=== PATIENT | male | born 1970 | race Caucasian/White ===

== ENCOUNTER → 2020-11-23 | Outpatient (REF) ==
[2020-11-23 22:40] LABS: BASO % 0.1 % (0.0-2.0); EOS % 0.1 % (0-4.0); GRAN # 6.4 (1.4-6.5); HEMOGLOBIN 10.6 g/dl (13.5-18.0); LYMPH # 0.6 (1.2-3.4); LYMPH % 7.9 % (20.0-51.0); MEAN CELL VOLUME 86 fl (80.0-100.0); MEAN CORPUSCULAR HEMOGLOBIN 29 pg (27.0-31.0); MEAN CORPUSCULAR HGB CONC 34 g/dl (33.0-37.0); MEAN PLATELET VOLUME 9.9 fl (7.4-10.4); MONO # 0.2 (0.1-0.6); MONO % 2.5 % (1.7-9.3); PLATELET COUNT 350 K/mm3 (130-400); RED BLOOD COUNT 3.66 M/mm3 (4.20-5.60); REDCELL DISTRIBUTION WIDTH-CV 13.6 % (11.5-14.5)
[2020-11-23 22:50] LABS: ALBUMIN 2.7 gm/dL (3.5-5.0); BILIRUBIN,TOTAL 0.7 mg/dL (0.0-1.0); CALCIUM 8.2 mg/dL (8.4-10.2); CREATININE, serum 1.11 (0.66-1.25)
[2020-11-23 22:51] LABS: HEMATOCRIT 31.4 % (42.0-52.0)
== END ==
LOC: ZCOL.LAB 22:35
DX: Z51.81 Encounter for therapeutic drug level monitoring (principal)

== ENCOUNTER 2021-01-01 13:29 | Outpatient (RCR) | payer BC ==
[~2021-01-01] VITALS: Ht 182.9 cm; Wt 114.4 kg
[~2021-01-01 13:29] MED LIST: ATIVAN 0.50.5 MG/TAB PO; BETAPACE 80MG80 MG PO; BETAPACE80 MG PO; CALCIUM PO; CENTRUM SILVER CHEW PO; K-DUR20 MEQ PO; K-TAB20 PO; MAG-OX 400400 MG/TAB PO; MEDROL 4MG DOSPA4 MG PO; NATURE'S BLEND100 M2; NATURE'S BLEND100 M2 PO; NEURONTIN100 MG/CAP PO; NORCO 325 MG-51 TAB PO; PRINZIDE 12.5 M1 TA1 PO; PROTONIX 40MG T40 MG PO; ROBAXIN 50500 MG/TAB PO; ROXICODONE 55 MG/TAB PO; ULTRAM 50MG TAB50 MG PO; [UNRECOGNIZED DRUG - OTHER] PO; [UNRECOGNIZED DRUG - REMARK]
[2021-01-01] MEDS ORDERED: K-DUR20 MEQ PO (14:39)
[2021-01-01] MEDS ORDERED: CALCIUM 600MG+D1 TAB PO (14:40)
[2021-01-01] MEDS ORDERED: NATURE'S BLEND100 M2 PO (14:40)
[2021-01-01] MEDS ORDERED: VITAMIN B-6100 MG PO (14:42)
[2021-01-01] MEDS ORDERED: MIRALAX PA17 GM/Dose PO (14:42)
[2021-01-01] MEDS ORDERED: VITAMIN B12 781 TAB PO (14:43)
[2021-01-01] MEDS ORDERED: NATURAL IRON65 MG PO (14:43)
[2021-01-01] MEDS ORDERED: ULTRAM 50MG TAB50 MG PO (14:44)
[2021-01-01] MEDS ORDERED: ROBAXIN 75750 MG/TAB PO (14:44)
[2021-01-01] MEDS ORDERED: TYLENOL 325MG325 MG PO (14:44)
[2021-01-01] MEDS ORDERED: MAG DELAY64 M1 PO (14:46)
[2021-01-01] MEDS ORDERED: NEURONTIN100 MG/CAP PO (14:46)
[2021-01-01] MEDS ORDERED: COLACE 100100 MG/CAP PO (14:47)
[2021-01-01] MEDS ORDERED: FLEXERIL5 MG PO (14:47)
[2021-01-01] MEDS ORDERED: LOVENOX 6060 MG/0.6 SQ (14:48)
[2021-01-01] MEDS ORDERED: ROXICODONE 55 MG/TAB PO (14:48)
[2021-01-01 14:51] VITALS: BP 121/98; PULSE 100; TEMP 98.8
--- NOTE | 2021-01-01 15:30 | NUR ---
Pt assisted up to wheelchair by austin lift. He and are assisted out to their vehicle.
[2021-05-03] MEDS ORDERED: ASPIRIN E.C. 8181 MG PO (11:50)
== END 2021-01-01 17:16 | disposition home or self-care (01) ==
LOC: EUO 13:29
DX: Z95.828 Presence of other vascular implants and grafts (principal)
CPT/HCPCS: C1751

== ENCOUNTER 2021-02-26 20:50 | Inpatient (IN) | payer BC ==
[~2021-02-26] VITALS: Ht 182.9 cm; Wt 109.1 kg
[~2021-02-26 20:50] MED LIST changes: +CALCIUM 600MG+D1 TAB PO; +COLACE 100100 MG/CAP PO; +FLEXERIL5 MG PO; +LOVENOX 6060 MG/0.6 SQ; +MAG DELAY64 M1 PO; +MIRALAX PA17 GM/Dose PO; +NATURAL IRON65 MG PO; +ROBAXIN 75750 MG/TAB PO; +TYLENOL 325MG325 MG PO; +VITAMIN B-6100 MG PO; +VITAMIN B12 781 TAB PO
[2021-02-26 21:18] LABS: MEAN CELL VOLUME 88 fl (80.0-100.0); MEAN CORPUSCULAR HGB CONC 33 g/dl (33.0-37.0); MEAN PLATELET VOLUME 12.1 fl (7.4-10.4); RED BLOOD COUNT 2.28 M/mm3 (4.20-5.60); REDCELL DISTRIBUTION WIDTH-CV 14.2 % (11.5-14.5)
[2021-02-26 21:22] LABS: HEMATOCRIT 20.1 % (42.0-52.0); MEAN CORPUSCULAR HEMOGLOBIN 29 pg (27.0-31.0)
[2021-02-26 21:23] LABS: HEMOGLOBIN 6.7 g/dl (13.5-18.0); PLATELET COUNT 29 K/mm3 (130-400)
[2021-02-26 21:32] LABS: ALBUMIN 2.3 gm/dL (3.5-5.0); BILIRUBIN,TOTAL 0.4 mg/dL (0.0-1.0); C-REACTIVE PROTEIN 6.8 mg/dL (0.0-0.9); CREATININE, serum 0.59 (0.66-1.25); TOTAL PROTEIN 5.9 gm/dL (6.4-8.2)
[2021-02-26 21:34] LABS: CALCIUM 4.6 mg/dL (8.4-10.2); POTASSIUM 2.8 mmol/L (3.4-5.0)
[2021-02-26 22:11] LABS: INR 1.3 (0.8-3.0); PROTHROMBIN TIME 14.1 SECONDS (9.7-12.8)
[2021-02-26 22:13] LABS: PARTIAL THROMBOPLASTIN TIME 31.3 SECONDS (26.0-37.0)
[2021-02-26 22:19] LABS: BAND 2 % (0-10); LYMPHOCYTE 17 % (20.0-51.0); NEUTROPHILS 74 % (42.0-75.2)
[2021-02-26 22:20] LABS: PLATELET ESTIMATE DECREASED (NORMAL)
[2021-02-27] VITALS (7 sets, daily range): BP systolic 79–106; BP diastolic 55–73; PULSE 91–100; TEMP 97.4–98.1
[2021-02-27] MEDS ORDERED: ATIVAN 0.50.5 MG/TAB PO (00:15)
--- NOTE | 2021-02-27 01:09 | NUR ---
PT TRANSPORTED FROM ED TO MEDICAL FLOOR AT 0030 TO ROOM 317,PT A/O X4, VSS, O2 ROOM AIR, POTASSIUM 40 MEQ INFUSING IV AND MAGNESIUM IV INFUSING VIA ABENA PICC. PT REPORTS PAIN TO LOWER BACK AND GENERALIZED ACHING. PTS WILL BRING HOME MED LIST WITHIN THE NEXT COUPLE HOURS.PT REQUESTS A SLIDING BOARD TO USE BEDSIDE COMMODE. NURSE WILL ACCOMODATE. PT EXPRESSES NO ADDITIONAL NEEDS AT THIS TIME. CALL LIGHT WITHIN REACH.
[2021-02-27 01:20] LABS: COLLECTION METHOD CLEAN CATCH
[2021-02-27 01:33] LABS: PH 6 (5-8); SQUAMOUS EPITHELIAL None Seen /hpf; URINE APPEARANCE Clear; URINE BACTERIA None Seen /hpf; URINE BILIRUBIN Negative (NEGATIVE); URINE BLOOD 3+ (NEGATIVE); URINE COLOR Yellow; URINE GLUCOSE Negative (NEGATIVE); URINE KETONE Negative (NEGATIVE); URINE LEUKOCYTE ESTERASE Negative (NEGATIVE); URINE NITRATE Negative (NEGATIVE); URINE PROTEIN(semi-quant) 1+ (NEGATIVE); URINE RBC 20-50 /hpf; URINE UROBILINOGEN Negative (NEGATIVE)
[2021-02-27] MEDS ORDERED: PREDNISONE20 MG PO (04:35)
[2021-02-27] MEDS ORDERED: FLOMAX 0.40.4 MG/CAP PO (04:36)
--- NOTE | 2021-02-27 05:03 | NUR ---
PT WAS ABLE TO PASS A BM, PT REQUIRED 3 STAFF MEMBERS TO HELP AMBULATE TO COMMODE. LIFT MACHINE REQUIRED FOR AMBULATION. PT REPORTS PAIN TO LOWER BACK AND LOWER JOINTS 8 OUT OF 10 SCORE. PT MEDICATED AND REPOSITIONED. PT WAS ABLE TO PROVIDE MEDICATION LIST HE RECEIVED VIA PHONE FROM . NURSE INPUT MEDICATION RECONCILATION. PT. EXPRESSES NO ADDITIONAL NEEDS AT THIS TIME. CALL LIGHT WITHIN REACH.
[2021-02-27] MEDS ORDERED: LOMOTIL 0.025 M1 TAB PO (06:50)
[2021-02-27] MEDS ORDERED: FENTANYL 75MCG TD (07:06)
[2021-02-27 07:12] LABS: MEAN CELL VOLUME 89 fl (80.0-100.0); MEAN CORPUSCULAR HGB CONC 33 g/dl (33.0-37.0); MEAN PLATELET VOLUME 11.6 fl (7.4-10.4); RED BLOOD COUNT 2.24 M/mm3 (4.20-5.60); REDCELL DISTRIBUTION WIDTH-CV 14.6 % (11.5-14.5)
[2021-02-27] MEDS ORDERED: ROXANOL 20MG20 MG/ML PO (07:15)
[2021-02-27 07:16] LABS: ALBUMIN 2.3 gm/dL (3.5-5.0); BILIRUBIN,TOTAL 0.3 mg/dL (0.0-1.0); CREATININE, serum 0.65 (0.66-1.25); MAGNESIUM 1.4 mg/dL (1.6-2.3); TOTAL PROTEIN 5.7 gm/dL (6.4-8.2)
[2021-02-27] MEDS ORDERED: ZOFRAN8 MG PO (07:16)
[2021-02-27] MEDS ORDERED: DECADRON 4MG TAB4 MG PO (07:17)
[2021-02-27 07:21] LABS: HEMOGLOBIN 6.6 g/dl (13.5-18.0); MEAN CORPUSCULAR HEMOGLOBIN 29 pg (27.0-31.0); PLATELET COUNT 26 K/mm3 (130-400)
[2021-02-27 07:26] LABS: POTASSIUM 2.8 mmol/L (3.4-5.0)
[2021-02-27 07:56] LABS: IRON,SERUM 108 ug/dL (35-150)
--- NOTE | 2021-02-27 08:00 | NUR ---
Pt is in bed at this time. C/O pain in the lower extremeties. A&Ox4, no other complaints. Pt needs blood transfusion, blood is ready, per report, we were waiting on morning labs before starting the transfusion. No other concerns at this time.
[2021-02-27 08:05] LABS: TOTAL IRON BINDING CAPACITY 174 ug/dL (261-462)
[2021-02-27 08:48] LABS: BAND 12 % (0-10); LYMPHOCYTE 10 % (20.0-51.0); NEUTROPHILS 76 % (42.0-75.2)
[2021-02-27 08:49] LABS: PLATELET ESTIMATE DECREASED (NORMAL)
[2021-02-27 08:50] LABS: HYPOCHROMIA 1+; NUCLEATED RED BLOOD CELL 0 (0-6)
--- NOTE | 2021-02-27 10:02 | NUR ---
Senior Ssis Developer attended clinical rounds with the team. The patient currently receives cancer treatment and follow Dr. Case. Dr. Cuadra involved in care as well. Per nurse the patient receives home health services from [facility]. After rounds, RICKEY met with the patient to complete intake. The patient lives in [place] with his , Moe. The patient has a wheelchair, commode, walker, hospital bed, austin lift, and will be purchasing a shower chair soon. The patient receives assistance with ADLs from Moe. The patient confirms he does have [facility]. The patient does not have advanced directives but states he does have the forms and is working on completing them. The patient plans on returning home with [facility]. Senior Ssis Developer contacted Marcella with [facility]. She confirms they do have the patient for hh services and will accept him back at discharge. *Discharge disposition: Home with spouse and [facility]
--- NOTE | 2021-02-27 14:13 | NUR ---
Assistant Store Manager Trainee faxed clinical updates to Marcella with [facility].
[2021-02-27 17:21] LABS: FOLATE (FOLIC ACID) 8.8 ng/mL (2.0-20.0)
[2021-02-27 19:46] LABS: HEMATOCRIT 24.6 % (42.0-52.0); HEMOGLOBIN 8.3 g/dl (13.5-18.0)
--- NOTE | 2021-02-27 20:00 | NUR ---
Assessment complete. Patient transferes using austin lift and has just had a medium, loose bowel movement in BSC. Patient is alert and oriented with no complaints of pain at this time. currently at bedside. Bilateral lower extremity and feet edema is present with 1-2 + pitting. Breakdown is noted on his bottom; small parts of the skin appear excoriated and most of it is reddened; barrier cream applied after hygeine care. Comfort measures provided. Call light in reach and bed alarm set.
[2021-02-28 04:14] VITALS: BP 108/70; PULSE 95; TEMP 97.8
[2021-02-28 06:56] LABS: BASO % 0.2 % (0.0-2.0); EOS % 0.1 % (0-4.0); GRAN # 9.2 (1.4-6.5); GRAN % 76.1 % (42.2-75.2); LYMPH # 2.1 (1.2-3.4); LYMPH % 17.4 % (20.0-51.0); MEAN CELL VOLUME 89 fl (80.0-100.0); MEAN CORPUSCULAR HGB CONC 34 g/dl (33.0-37.0); MEAN PLATELET VOLUME 12.1 fl (7.4-10.4); MONO # 0.7 (0.1-0.6); MONO % 5.5 % (1.7-9.3); RED BLOOD COUNT 2.34 M/mm3 (4.20-5.60); REDCELL DISTRIBUTION WIDTH-CV 15.1 % (11.5-14.5)
[2021-02-28 07:03] LABS: ALBUMIN 2.2 gm/dL (3.5-5.0); BILIRUBIN,TOTAL 0.3 mg/dL (0.0-1.0); CREATININE, serum 0.66 (0.66-1.25); PHOSPHOROUS 1.9 mg/dL (2.5-4.5); POTASSIUM 3.7 mmol/L (3.4-5.0); TOTAL PROTEIN 5.4 gm/dL (6.4-8.2)
[2021-02-28 07:10] LABS: CALCIUM 5.5 mg/dL (8.4-10.2)
[2021-02-28 07:11] LABS: MAGNESIUM 0.9 mg/dL (1.6-2.3)
--- NOTE | 2021-02-28 07:21 | NUR ---
Patient asleep in bed at this time. No signs of pain, discomfort, or further needs at this time. Will continue to monitor. Call light within reach. Fall precautions in place.
--- NOTE | 2021-02-28 07:25 | NUR ---
Critical lab values recieved from Jessica in lab. Calcium is 5.5, Magnesium 0.9, Hgb 7, and Plt 16. Results given to JATIN Michelle.
[2021-02-28 07:26] LABS: HEMATOCRIT 20.7 % (42.0-52.0); MEAN CORPUSCULAR HEMOGLOBIN 30 pg (27.0-31.0); PLATELET COUNT 16 K/mm3 (130-400)
[2021-02-28 07:57] VITALS: BP 98/60; PULSE 92; TEMP 97.5
--- NOTE | 2021-02-28 09:23 | NUR ---
Associate Counsel attended clinical rounds with the team. The patient plans to return home with [facility] when medically cleared for discharge.
[2021-02-28 11:25] VITALS: BP 100/62; PULSE 93; TEMP 97.6
[2021-02-28 12:02] LABS: HEMATOCRIT 21.2 % (42.0-52.0); HEMOGLOBIN 7.1 g/dl (13.5-18.0)
[2021-02-28 16:21] VITALS: BP 124/86; PULSE 94; TEMP 97.7
--- NOTE | 2021-02-28 18:25 | NUR ---
Patient has a good day. Scheduled meds given. Assessment performed. Patient has experienced some pain today and was given Roxycodone as ordered. Patient states that this has helped. Patient has recieved electrolyte replacement and will have labs rechecked in the AM. Patient is currently on an air mattress and has been repositioned every 2 hours. Patient is not incontinent. Patient denies any further pain, discomfort, or needs at this time. Will continue to monitor.
--- NOTE | 2021-02-28 19:03 | NUR ---
Received report from May. Patient awake in bed. Patient's at bedside. He wanted to go to the bathroom to have bowel movement. Will inform CUSTOMER ADVOCATE for assistance.
[2021-02-28 19:07] VITALS: BP 121/80; PULSE 86; TEMP 97.6
--- NOTE | 2021-02-28 19:25 | NUR ---
Placed patient in a austin lift to bedside commode. Bathroom call light within reach. Changed bedsheets. He wants his air mattress to be removed for now.
--- NOTE | 2021-02-28 20:40 | NUR ---
Returned patient back to bed using austin lift. He complains of pain with pain score of 7/10. Will give Oxycodone. Placed pillows under his feet with ankles floating. Flushed PICC line on right upper arm, both have blood return and flashes well.
[2021-03-01] VITALS (13 sets, daily range): BP systolic 90–163; BP diastolic 49–97; PULSE 83–125; TEMP 97.3–98.5
--- NOTE | 2021-03-01 06:14 | NUR ---
Patient complains of pain on his left leg. Oxycodone given. He refused to be repositioned when offered awhile ago. He only wanted his legs to be moved and adjust his pillow on his feet.
[2021-03-01 06:17] LABS: BASO % 0.2 % (0.0-2.0); GRAN # 9.8 (1.4-6.5); LYMPH # 2.9 (1.2-3.4); MEAN CELL VOLUME 89 fl (80.0-100.0); MEAN CORPUSCULAR HGB CONC 34 g/dl (33.0-37.0); MEAN PLATELET VOLUME 11.9 fl (7.4-10.4); MONO % 7.1 % (1.7-9.3); RED BLOOD COUNT 2.09 M/mm3 (4.20-5.60); REDCELL DISTRIBUTION WIDTH-CV 14.9 % (11.5-14.5)
[2021-03-01 06:18] LABS: HEMATOCRIT 18.5 % (42.0-52.0); MEAN CORPUSCULAR HEMOGLOBIN 30 pg (27.0-31.0)
[2021-03-01 06:20] LABS: HEMOGLOBIN 6.2 g/dl (13.5-18.0); PLATELET COUNT 15 K/mm3 (130-400)
[2021-03-01 06:28] LABS: ALBUMIN 2.1 gm/dL (3.5-5.0); BILIRUBIN,TOTAL 0.2 mg/dL (0.0-1.0); CREATININE, serum 0.73 (0.66-1.25); PHOSPHOROUS 2.1 mg/dL (2.5-4.5); POTASSIUM 3.5 mmol/L (3.4-5.0); TOTAL PROTEIN 5.1 gm/dL (6.4-8.2)
[2021-03-01 06:33] LABS: CALCIUM 5.4 mg/dL (8.4-10.2); MAGNESIUM 0.8 mg/dL (1.6-2.3)
--- NOTE | 2021-03-01 06:56 | NUR ---
Patient lying in bed asleep at this time. No signs of pain, discomfort, or further needs at this time. Will continue to monitor. Call light within reach.
[2021-03-01 12:56] LABS: RETIC # 0.01 M/mm3 (0.02-0.16); RETIC % 0.6 % (0.5-3.52)
--- NOTE | 2021-03-01 13:54 | NUR ---
Muskrat Trapper attended clinical rounds with the team. The patient is not ready for discharge this day.
--- NOTE | 2021-03-01 14:21 | NUR ---
Blood transfusion on patient started. GABBIE Bach verified product. Patient tolerating well. Will continue to monitor.
[2021-03-01 16:50] LABS: HEMATOCRIT 22.3 % (42.0-52.0); HEMOGLOBIN 7.6 g/dl (13.5-18.0)
[2021-03-01 16:59] LABS: MAGNESIUM 1.1 mg/dL (1.6-2.3)
--- NOTE | 2021-03-01 18:08 | NUR ---
Patient has had a good day. Hgb this am was 6.2, Mag 0.8, Ca 5.4, K 3.5. IV Calcium and Magnesium replacement have been given. 1 unit of blood has been transfused. Patient tolerated well. Hgb post transfusion is 7.6, Ca 6.0, and Mag 1.1. Patient has been recieving PRN pain medication as ordered throughout the shift. Patient denies any further pain, discomfort, or needs at this time. Daughter at bedside. Call light within reach. Fall precautions in place.
[2021-03-02] VITALS (12 sets, daily range): BP systolic 96–138; BP diastolic 66–87; PULSE 82–101; TEMP 97.5–98.8
--- NOTE | 2021-03-02 02:44 | NUR ---
PT SITTING UP IN BED,02 ROOM AIR, VSS. PT REPORTS BEING CONSTIPATED,PT STATES HE WILL TRY TO DRINK COFFEE TO HELP PASS BM. REPORTS PAIN FOR GROIN AND LOWER BACK AT 8 OUT OF 10. 5MG MORPHINE ADMINISTERED. FOLLOW UP PAIN RATE AT 5 OUT OF 10. PT WOULD ALSO LIKE TO ADD HIS SISTER A HIPAA BENEFICIARY. WILL REPORT TO NEXT SHIFT. INFORMED PT TO GIVE CODE TO SISTER. PT ALSO EXPRESSES HE WOULD LIKE TO SHOWER AT SOME POINT TONIGHT. NO ADDITIONAL NEEDS EXPRESSED AT THIS TIME. CALL LIGHT WITHIN REACH.
[2021-03-02 08:09] LABS: CALCIUM 6.1 mg/dL (8.4-10.2); CREATININE, serum 0.66 (0.66-1.25)
[2021-03-02 08:32] LABS: BASO % 0.2 % (0.0-2.0); GRAN # 11.1 (1.4-6.5); GRAN % 75.3 % (42.2-75.2); LYMPH # 2.5 (1.2-3.4); LYMPH % 16.7 % (20.0-51.0); MEAN CELL VOLUME 88 fl (80.0-100.0); MEAN CORPUSCULAR HGB CONC 33 g/dl (33.0-37.0); MEAN PLATELET VOLUME 11.4 fl (7.4-10.4); RED BLOOD COUNT 2.33 M/mm3 (4.20-5.60); REDCELL DISTRIBUTION WIDTH-CV 15.1 % (11.5-14.5)
[2021-03-02 08:49] LABS: HEMATOCRIT 20.6 % (42.0-52.0); HEMOGLOBIN 6.8 g/dl (13.5-18.0); MEAN CORPUSCULAR HEMOGLOBIN 29 pg (27.0-31.0); PLATELET COUNT 16 K/mm3 (130-400)
--- NOTE | 2021-03-02 09:29 | NUR ---
Php Software Engineer attended clinical rounds with the team. *Discharge disposition: Home with spouse and [facility]
[2021-03-02 15:47] LABS: HEMATOCRIT 25.3 % (42.0-52.0); HEMOGLOBIN 8.4 g/dl (13.5-18.0)
--- NOTE | 2021-03-02 19:08 | NUR ---
Patient resting in bed at this time. Patient is alert and oriented, answers questions appropriately. Patient up with PT/OT to shower today, coccyx was reddenend but blanchable. Air mattress was placed on patient's bed, but patient refused to allow it to be blown up and requests it's removal, states that he is unable to use the urinal with an air mattress and does not want one. Patient was educated about bed sore risk, patient verbalizes understanding but continues to refuse air mattress. One unit of irradiated PRBCs was administered per order. Patient tolerated transfusion well, no indications of transfusion or post transfusion reaction were reported or noted. Patient currently denies needs, call light within reach.
--- NOTE | 2021-03-02 19:10 | NUR ---
Received report from Julieta. Patient awake in bed. Denies needs at this time.
--- NOTE | 2021-03-02 21:00 | NUR ---
Assesment done. Patient complains of pain on his legs. Oxycodone given. Air mattress refused. PICC line flushed and with blood return. Urinal at the bedside. Call light within reach.
[2021-03-03 04:36] VITALS: BP 105/64; PULSE 88; TEMP 97.8
--- NOTE | 2021-03-03 06:31 | NUR ---
PAtient had uneventful night. He was assisted to the bathroom last night via austin lift. Still with pain on his legs. Oxycodone given.
[2021-03-03 07:16] LABS: BASO % 0.1 % (0.0-2.0); GRAN % 74.6 % (42.2-75.2); LYMPH # 2.4 (1.2-3.4); LYMPH % 16.2 % (20.0-51.0); MEAN CELL VOLUME 89 fl (80.0-100.0); MEAN CORPUSCULAR HGB CONC 33 g/dl (33.0-37.0); MEAN PLATELET VOLUME 11.1 fl (7.4-10.4); MONO # 1.2 (0.1-0.6); MONO % 8.4 % (1.7-9.3); RED BLOOD COUNT 2.52 M/mm3 (4.20-5.60)
[2021-03-03 07:23] LABS: HEMATOCRIT 22.3 % (42.0-52.0); HEMOGLOBIN 7.4 g/dl (13.5-18.0); MEAN CORPUSCULAR HEMOGLOBIN 29 pg (27.0-31.0); PLATELET COUNT 17 K/mm3 (130-400)
[2021-03-03 07:24] LABS: CALCIUM 6.4 mg/dL (8.4-10.2); CREATININE, serum 0.76 (0.66-1.25); MAGNESIUM 1.1 mg/dL (1.6-2.3); POTASSIUM 3.7 mmol/L (3.4-5.0)
[2021-03-03 08:00] VITALS: BP 108/73; PULSE 83; TEMP 98.6
[2021-03-03 12:00] VITALS: BP 107/53; PULSE 102; TEMP 98.3
[2021-03-03 16:31] LABS: HEMOGLOBIN 8.3 g/dl (13.5-18.0)
[2021-03-03 17:43] VITALS: BP 103/63; PULSE 104; TEMP 98.4
--- NOTE | 2021-03-03 19:08 | NUR ---
Received report from Claire. Patient awake in bed, eating dinner. at the bedside.
[2021-03-03 20:06] VITALS: BP 105/59; BP 127/56; PULSE 105; PULSE 82; TEMP 97.6; TEMP 98.8
--- NOTE | 2021-03-03 20:30 | NUR ---
Placed compression stockings on BLE. Informed patient that stocking should be on and off at least every 8 hours. Patient aware on fluid restriction. New air mattress placed by day shift nurse. With external catheter. With ongoing Magnesium Sulfate.
[2021-03-03 23:10] VITALS: BP 112/67; PULSE 97; TEMP 97.5
[2021-03-04 03:06] VITALS: BP 124/75; PULSE 74; TEMP 97.4
--- NOTE | 2021-03-04 06:23 | NUR ---
Compression socks removed. Oxycodone given this morning. Reminded patient on watching out for his fluid restriction.
[2021-03-04 06:31] LABS: BASO % 0.2 % (0.0-2.0); GRAN # 10.3 (1.4-6.5); LYMPH # 0.8 (1.2-3.4); LYMPH % 7.1 % (20.0-51.0); MEAN CELL VOLUME 90 fl (80.0-100.0); MEAN CORPUSCULAR HGB CONC 33 g/dl (33.0-37.0); MEAN PLATELET VOLUME 11.9 fl (7.4-10.4); MONO # 0.4 (0.1-0.6); MONO % 3.3 % (1.7-9.3); REDCELL DISTRIBUTION WIDTH-CV 14.9 % (11.5-14.5)
[2021-03-04 06:36] LABS: HEMATOCRIT 23.3 % (42.0-52.0); HEMOGLOBIN 7.6 g/dl (13.5-18.0); MEAN CORPUSCULAR HEMOGLOBIN 29 pg (27.0-31.0)
[2021-03-04 06:38] LABS: PLATELET COUNT 21 K/mm3 (130-400)
[2021-03-04 06:42] LABS: CALCIUM 7.2 mg/dL (8.4-10.2); CREATININE, serum 0.83 (0.66-1.25); MAGNESIUM 1.3 mg/dL (1.6-2.3); POTASSIUM 4.6 mmol/L (3.4-5.0)
--- NOTE | 2021-03-04 07:11 | NUR ---
Patient awake in bed a this time. New air mattress placed yesterday, patient stated that this has helped relieve pressure on his bottom. Patient denies any pain, discomfort, or futher needs at this time. will be coming to visit later in the day. Will continue to monitor. Call light in reach. Fall precautions in place.
[2021-03-04 07:23] VITALS: BP 129/87; PULSE 85; TEMP 97.4
--- NOTE | 2021-03-04 07:40 | NUR ---
Lab told this RN that patient had a D-dimer of 1400.00. JATIN Anaya notified.
--- NOTE | 2021-03-04 10:21 | NUR ---
Scheduled meds given. Assessments performed. Sacral area is reddened, air mattress has been put on the bed, and barrier cream is being used. Patient being repositioned frequently. Fentanyl patch removed, new patch placed on Left Lower Back. Nicotine patch placed on left shoulder. Patient denies any discomfort or futher needs at this time. Will continue to monitor. Call light in reach. Fall precautions in place.
[2021-03-04 11:31] VITALS: BP 110/55; PULSE 88; TEMP 97.6
--- NOTE | 2021-03-04 12:34 | NUR ---
Patient resting in bed at this time. C/O 04/28 all over his body. Roxycodone given. Will re-evaluated pain level. Condom cath fell off, patient does not want it placed back on until later in the day. Patient denies any further discomfort or needs at this time. Will continue to monitor. Call light in reach, fall precautions in place, and air mattress in use.
[2021-03-04 16:12] VITALS: BP 123/88; PULSE 82; TEMP 98.4
--- NOTE | 2021-03-04 17:54 | NUR ---
Patient has been good today. Pain has been at a manageable level. PRN oxycodone and tramadol given. Air mattress and SCD's being used, along with frequent repositioning. Electrolytes have been replaced orally. External catheter has fallen off, patient request that it be replaced at a later time, he is currenlty using the urinal. Patient denies any further discomfort or needs at this time. Will continue to monitor. Call light in reach. Fall precautions in place.
[2021-03-04 18:55] VITALS: BP 126/76; PULSE 97; TEMP 98.7
--- NOTE | 2021-03-04 19:05 | NUR ---
Received report from May. Patient awake in bed. Denies needs at this time.
--- NOTE | 2021-03-04 20:00 | NUR ---
Patient refused to put back the external catheter. He states he can void using the urinal. Isac hose socks removed. SCD placed on BLE.
[2021-03-04 23:55] VITALS: BP 97/72; PULSE 93; TEMP 97.6
[2021-03-05 04:16] VITALS: BP 120/76; PULSE 77; TEMP 98.6
--- NOTE | 2021-03-05 05:37 | NUR ---
Patient had one episode of soft stools. External catheter still off and he uses urinal. Tramadol given this morning for his pain. He doesn't want to have visitors from anyone or someone calling him for an update. Informed charge nurse and supervisor malt house. Will pass on to day shift nurse.
[2021-03-05 06:42] LABS: BASO % 0.1 % (0.0-2.0); GRAN # 12.8 (1.4-6.5); LYMPH # 0.9 (1.2-3.4); LYMPH % 6.1 % (20.0-51.0); MEAN CELL VOLUME 91 fl (80.0-100.0); MEAN CORPUSCULAR HGB CONC 33 g/dl (33.0-37.0); MEAN PLATELET VOLUME 11.4 fl (7.4-10.4); MONO # 0.6 (0.1-0.6); MONO % 4.4 % (1.7-9.3); RED BLOOD COUNT 2.46 M/mm3 (4.20-5.60); REDCELL DISTRIBUTION WIDTH-CV 14.7 % (11.5-14.5)
[2021-03-05 06:48] LABS: HEMATOCRIT 22.4 % (42.0-52.0); HEMOGLOBIN 7.3 g/dl (13.5-18.0); MEAN CORPUSCULAR HEMOGLOBIN 30 pg (27.0-31.0)
[2021-03-05 06:50] LABS: PLATELET COUNT 36 K/mm3 (130-400)
[2021-03-05 07:00] LABS: ALBUMIN 2.3 gm/dL (3.5-5.0); BILIRUBIN,TOTAL 0.3 mg/dL (0.0-1.0); CREATININE, serum 0.86 (0.66-1.25); POTASSIUM 4.7 mmol/L (3.4-5.0); TOTAL PROTEIN 5.4 gm/dL (6.4-8.2)
--- NOTE | 2021-03-05 07:00 | NUR ---
Report received from GABBIE Farmer. PT in bed sleeping with eyes closed. Will continue to monitor.
[2021-03-05 08:00] VITALS: BP 102/73; PULSE 72; TEMP 97.6
--- NOTE | 2021-03-05 08:59 | NUR ---
Assessment charted. Pt awake and alert, very involved in care. DOES NOT WANT VISITORS OR ANYONE ACCESSING HIS UPDATES, HE WITHDRAWS RIGHTS FROM EVERYONE. Pain at 8/10 to BLE and low back, PRN pain meds provided per request. Air mattress in place. PT eating well. Discussed plan of care. BLE +3 or +4, chronic issue, SCDs in place and hose will be placed shortly. PICC to ABENA flushes and good blood return. Sore backside, will use creams per request. Will continue to monitor.
[2021-03-05] MEDS ORDERED: PHOSPHA 250 NEU1 TAB PO (10:33)
[2021-03-05] MEDS ORDERED: CALCIUM 600MG+D1 TAB PO (10:34)
[2021-03-05] MEDS ORDERED: MAG-OX 400400 MG/TAB PO (10:34)
[2021-03-05] MEDS ORDERED: PEPCID 20MG TAB20 MG PO (10:36)
[2021-03-05] MEDS ORDERED: PREDNISONE20 MG PO (10:53)
[2021-03-05 11:48] VITALS: BP 119/82; PULSE 89; TEMP 97.5
--- NOTE | 2021-03-05 14:24 | NUR ---
Discharge teachign completed at thsi time. Pt left via cart with EMS staff. PICC remains per orders for home care. Pt recieved dsicharge packet, reivewed new meds, chages and follow up appointmetns. Pt verbalized understanding, answered all questions. Pt left wtih all bleongings via EMS. EMS to drive home, criteria met.
--- NOTE | 2021-03-06 12:19 | NUR ---
(late entry 03/05) The patient discharged home, 03/05 with spouse and [facility]. PT.OT.Nursing. The patient's friend usually transports the patient. However, he could not transport him this day. The patient was interested in a non-emergent transport via EMS. RICKEY informed the patient he would likely have to sign an ABN and would be responsible for the cost if insurance declined to pay for the transport. He was in agreeance. RICKEY contacted [facility] and they transported the patient. RICKEY faxed discharge orders and discharge summary to Marcella with [facility] and contacted her regarding discharge. There are no additional needs.
[2021-05-03] MEDS ORDERED: ASPIRIN E.C. 8181 MG PO (11:50)
== END 2021-03-05 14:20 | disposition home health service (06) | DRG 812 ==
LOC: COL.ER 20:50 → MEDICAL 22:27 → COL.ER 22:27 → MEDICAL 22:27
PROVIDERS: Emergency Medicine; Hospitalist; Physician Assistant; Student in an Organized Health Care Education/Training Program; ADMIT Student in an Organized Health Care Education/Training Program
DX: D64.81 Anemia due to antineoplastic chemotherapy (principal); G61.81 Chronic inflammatory demyelinating polyneuritis; E87.1 Hypo-osmolality and hyponatremia; C63.7 Malignant neoplasm of other specified male genital organs; T45.1X5A Adverse effect of antineoplastic and immunosuppressive drugs, initial encounter; I10 Essential (primary) hypertension; I48.91 Unspecified atrial fibrillation; D69.6 Thrombocytopenia, unspecified; E83.51 Hypocalcemia; E87.6 Hypokalemia; E83.42 Hypomagnesemia; D72.829 Elevated white blood cell count, unspecified; E83.39 Other disorders of phosphorus metabolism; K21.9 Gastro-esophageal reflux disease without esophagitis; F41.9 Anxiety disorder, unspecified; G89.29 Other chronic pain
CPT/HCPCS: 99223-AI; 99232-AI; 99233-AI; 99239; J0610; J2930; J3475; J3480; J7030; J7512; P9040

== ENCOUNTER → 2021-04-26 | Outpatient (CLI) | payer BC ==
[~2021-04-26] MED LIST changes: +ASPIRIN E.C. 8181 MG PO; +CENA K40 MEQ/15 PO; +DAZIDOX10 MG PO; +DECADRON 4MG TAB4 MG PO; +FENTANYL 100MCG TD; +FENTANYL 50MCG TD; +FENTANYL 75MCG TD; +FLOMAX 0.40.4 MG/CAP PO; +LOMOTIL 0.025 M1 TAB PO; +NEURONTIN300 MG/CAP PO; +ONE-A-DAY ESSE1 EACH PO; +PEPCID 20MG TAB20 MG PO; +PHOSPHA 250 NEU1 TAB PO; +PREDNISONE20 MG PO; +PROBIOTIC ACID1 EAC3 PO; +QUESTRAN4 GM/9 GM PO; +ROXANOL 20MG20 MG/ML PO; +ZOFRAN8 MG PO
== END ==
LOC: EUO 08:30
DX: Z45.2 Encounter for adjustment and management of vascular access device (principal)

== ENCOUNTER 2021-05-03 12:44 | Outpatient (CLI) | payer BC ==
[~2021-05-03] VITALS: Ht 182.9 cm; Wt 111.6 kg
[2021-05-03 11:10] VITALS: BP 107/70; PULSE 64; TEMP 98.2
--- NOTE | 2021-05-03 12:20 | NUR ---
Pt taken from dept in care of [facility] with belongings. PICC to rt upper arm wrapped with wesly.
[~2021-05-03 12:44] MED LIST changes: -CENA K40 MEQ/15 PO; -DAZIDOX10 MG PO; -FENTANYL 100MCG TD; -FENTANYL 50MCG TD; -NEURONTIN300 MG/CAP PO; -ONE-A-DAY ESSE1 EACH PO; -PROBIOTIC ACID1 EAC3 PO; -QUESTRAN4 GM/9 GM PO
== END 2021-05-03 12:50 | disposition home or self-care (01) ==
LOC: EUO 12:44
DX: C77.2 Secondary and unspecified malignant neoplasm of intra-abdominal lymph nodes (principal); C79.89 Secondary malignant neoplasm of other specified sites
CPT/HCPCS: C1751

== ENCOUNTER 2021-06-29 08:56 | Outpatient (CLI) | payer BC ==
[2021-06-29] VITALS (10 sets, daily range): BP systolic 88–99; BP diastolic 30–70; PULSE 91–114; TEMP 97.7–98.9
[~2021-06-29] VITALS: Ht 182.9 cm; Wt 109.0 kg
--- NOTE | 2021-06-29 18:01 | NUR ---
Pt transferred via EMS at this time.
== END 2021-06-29 18:13 ==
LOC: EUO 08:56
DX: D64.9 Anemia, unspecified (principal)
CPT/HCPCS: J7050; P9040

== ENCOUNTER 2021-07-16 11:31 | Emergency (ER) | payer BC ==
[~2021-07-16] VITALS: Ht 182.9 cm; Wt 113.6 kg
[2021-07-16 11:33] VITALS: TEMP 97.5
[2021-07-16 12:41] LABS: ALBUMIN 1.6 gm/dL (3.5-5.0); BILIRUBIN,TOTAL 0.5 mg/dL (0.2-1.2); CREATININE, serum 2.12 mg/dL (0.72-1.25); POTASSIUM 4.1 mmol/L (3.5-4.5); TOTAL PROTEIN 5.4 gm/dL (6.2-8.1)
[2021-07-16 12:42] LABS: BASO % 0.1 % (0.0-2.0); GRAN % 83.8 % (42.2-75.2); LYMPH # 0.9 (1.2-3.4); LYMPH % 8.8 % (20.0-51.0); MEAN CELL VOLUME 94 fl (80.0-100.0); MEAN CORPUSCULAR HEMOGLOBIN 30 pg (27.0-31.0); MEAN CORPUSCULAR HGB CONC 31 g/dl (33.0-37.0); MEAN PLATELET VOLUME 9.5 fl (7.4-10.4); MONO # 0.7 (0.1-0.6); MONO % 6.3 % (1.7-9.3); PLATELET COUNT 231 K/mm3 (130-400); RED BLOOD COUNT 3.38 M/mm3 (4.20-5.60); REDCELL DISTRIBUTION WIDTH-CV 14.6 % (11.5-14.5)
[2021-07-16 12:49] LABS: HEMATOCRIT 31.9 % (42.0-52.0)
[2021-07-16 14:23] LABS: COLLECTION METHOD CLEAN CATCH
[2021-07-16 14:57] LABS: AMORPHOUS CRYSTAL Present /uL; PH 8 (5-8); SQUAMOUS EPITHELIAL 0-2 /hpf; URINE APPEARANCE Cloudy; URINE BACTERIA None Seen /hpf; URINE BILIRUBIN Negative (NEGATIVE); URINE BLOOD 2+ (NEGATIVE); URINE COLOR Yellow; URINE GLUCOSE Negative (NEGATIVE); URINE KETONE Negative (NEGATIVE); URINE LEUKOCYTE ESTERASE Trace (NEGATIVE); URINE NITRATE Negative (NEGATIVE); URINE PROTEIN(semi-quant) Negative (NEGATIVE); URINE UROBILINOGEN Negative (NEGATIVE)
[2021-07-16 16:00] VITALS: BP 104/81; PULSE 85
== END 2021-07-16 16:00 | disposition home or self-care (01) ==
LOC: COL.ER 11:31
PROVIDERS: Family Medicine
DX: R60.1 Generalized edema (principal); R59.0 Localized enlarged lymph nodes; I48.91 Unspecified atrial fibrillation; Z79.899 Other long term (current) drug therapy
CPT/HCPCS: J7120

== ENCOUNTER 2021-08-08 17:37 | Inpatient (IN) | payer BC ==
[~2021-08-08] VITALS: Ht 177.8 cm; Wt 278.7 kg
[2021-08-08] VITALS (50 sets, daily range): BP systolic 86–95; BP diastolic 65–72; PULSE 114–117; TEMP 97.8–97.9; O2SAT 95–100
[2021-08-08 18:42] LABS: MEAN CELL VOLUME 94 fl (80.0-100.0); MEAN CORPUSCULAR HGB CONC 31 g/dl (33.0-37.0); MEAN PLATELET VOLUME 11.6 fl (7.4-10.4); PLATELET COUNT 69 K/mm3 (130-400); RED BLOOD COUNT 2.62 M/mm3 (4.20-5.60); REDCELL DISTRIBUTION WIDTH-CV 14.3 % (11.5-14.5)
[2021-08-08 18:49] LABS: HEMATOCRIT 24.7 % (42.0-52.0); HEMOGLOBIN 7.6 g/dl (13.5-18.0); MEAN CORPUSCULAR HEMOGLOBIN 29 pg (27.0-31.0)
[2021-08-08 19:00] LABS: ALBUMIN 1.5 gm/dL (3.5-5.0); BILIRUBIN,TOTAL 0.7 mg/dL (0.2-1.2); CALCIUM 8.1 mg/dL (8.4-10.2); CREATININE, serum 2.75 mg/dL (0.72-1.25); POTASSIUM 4.8 mmol/L (3.5-4.5); TOTAL PROTEIN 4.9 gm/dL (6.2-8.1)
[2021-08-08 19:06] LABS: TROPONIN-I 0.031 ng/mL (0.00-0.033)
[2021-08-08 19:13] LABS: COLLECTION METHOD CLEAN CATCH
[2021-08-08 19:27] LABS: ARTERIAL BLD GAS O2 SATURATION 95.9 % (92-100); ARTERIAL BLOOD GAS BASE EXCESS -8.3 (-2-2); ARTERIAL BLOOD GAS HCO3 16.1 meq/L (22-26); ARTERIAL BLOOD GAS PO2 88.7 mmHg (80-100); ARTERIAL BLOOD GAS pH 7.36 (7.35-7.45)
[2021-08-08 19:29] LABS: BAND 4 % (0-10); LYMPHOCYTE 60 % (20.0-51.0); NEUTROPHILS 31 % (42.0-75.2)
[2021-08-08 19:30] LABS: MUCOUS Present /lpf; PH 5 (5-8); SQUAMOUS EPITHELIAL 0-2 /hpf; URINE APPEARANCE Cloudy; URINE BACTERIA Rare /hpf; URINE BILIRUBIN Negative (NEGATIVE); URINE BLOOD 2+ (NEGATIVE); URINE COLOR Amber; URINE GLUCOSE Negative (NEGATIVE); URINE KETONE Trace (NEGATIVE); URINE LEUKOCYTE ESTERASE 1+ (NEGATIVE); URINE NITRATE Negative (NEGATIVE); URINE PROTEIN(semi-quant) 2+ (NEGATIVE); URINE RBC 20-50 /hpf; URINE UROBILINOGEN >=4.0 mg/dL (NEGATIVE)
[2021-08-08 19:30] LABS: PLATELET ESTIMATE DECREASED (NORMAL)
[2021-08-08 19:31] LABS: OVALOCYTES 1+
[2021-08-08 20:20] LABS: CLOSTRIDIUM DIFF A/B NEG; CLOSTRIDIUM DIFF A/B INTERP No C.diff present
[2021-08-08 21:45] LABS: INR 1.4 (0.8-3.0); PROTHROMBIN TIME 15.4 SECONDS (9.7-12.8)
--- NOTE | 2021-08-08 22:01 | NUR ---
Vancomycin Initial Dosing Pharmacy Note Ordering provider: Diane Sky DO Indication/duration: SEPTIC SHOCK FROM UNKNOWN SOURCE / 7 DAYS Trough goal: 15-20 DOSING HX: NONE IDENTIFIED BMI: 34.5 WT: 109.1 KG ADJBW: 87 KG SCR: 2.75 ESTCRCL ~ 40 ML/MIN T 1/2 ~ 19H TMAX: 98.7 WBC: 0.8 LA: 1.8 UA REPORTIN - 2+ PROTEIN, TRACE KETONES, 2+ BLOOD, 1+ LEUK EST, 20-50 rbc, >50 WBC, RARE BACTERIA MICRO IN PROCESS CXR REPORTIN NO ACUTE ABNORMAILITY PT RECEIVED A LOADING DOSE OF 2 GM, WILL START A MAINTENANCE REGIMEN OF 1.25 GM Q24H. WILL FOLLOW RENAL FUNCTION, MICRO, AND TREATEMNT PLAN FOR NEED TO ADJUST THERAPY. THANK YOU FOR THIS DOSING CONSULT!
[2021-08-08] MEDS ORDERED: FENTANYL 100MCG TD (22:12)
[2021-08-08] MEDS ORDERED: FENTANYL 50MCG TD (22:13)
[2021-08-08] MEDS ORDERED: DAZIDOX10 MG PO (23:09)
[2021-08-08] MEDS ORDERED: PROBIOTIC ACID1 EAC3 PO (23:10)
[2021-08-08] MEDS ORDERED: NEURONTIN300 MG/CAP PO (23:11)
[2021-08-08] MEDS ORDERED: MAG-OX 400400 MG/TAB PO (23:12)
[2021-08-08] MEDS ORDERED: ROXANOL 20MG20 MG/ML PO (23:13)
[2021-08-08] MEDS ORDERED: PHOSPHA 250 NEU1 TAB PO (23:15)
[2021-08-08] MEDS ORDERED: CENA K40 MEQ/15 PO (23:16)
[2021-08-08] MEDS ORDERED: VITAMIN B12 781 TAB PO (23:17)
[2021-08-08] MEDS ORDERED: ONE-A-DAY ESSE1 EACH PO (23:17)
[2021-08-08] MEDS ORDERED: NATURE'S BLEND100 M2 PO (23:17)
[2021-08-08] MEDS ORDERED: CALCIUM 600MG+D1 TAB PO (23:17)
[2021-08-08] MEDS ORDERED: QUESTRAN4 GM/9 GM PO (23:19)
[2021-08-09] VITALS (753 sets, daily range): BP systolic 84–125; BP diastolic 53–90; PULSE 83–123; TEMP 97.4–98.6; O2SAT 78–100
[2021-08-09 02:33] LABS: ARTERIAL BLD GAS O2 SATURATION 94.7 % (92-100); ARTERIAL BLD GAS TCO2 CT 18.1; ARTERIAL BLOOD GAS HCO3 17.2 meq/L (22-26); ARTERIAL BLOOD GAS PO2 78.1 mmHg (80-100); ARTERIAL BLOOD GAS pH 7.38 (7.35-7.45)
[2021-08-09 04:56] LABS: MEAN CELL VOLUME 95 fl (80.0-100.0); MEAN CORPUSCULAR HGB CONC 31 g/dl (33.0-37.0); MEAN PLATELET VOLUME 10.8 fl (7.4-10.4); PLATELET COUNT 74 K/mm3 (130-400); RED BLOOD COUNT 3.21 M/mm3 (4.20-5.60); REDCELL DISTRIBUTION WIDTH-CV 14.2 % (11.5-14.5)
[2021-08-09 05:11] LABS: HEMATOCRIT 30.5 % (42.0-52.0); HEMOGLOBIN 9.3 g/dl (13.5-18.0); MEAN CORPUSCULAR HEMOGLOBIN 29 pg (27.0-31.0)
[2021-08-09 05:50] LABS: BAND 4 % (0-10); EOSINOPHIL 2 % (0-4); LYMPHOCYTE 64 % (20.0-51.0); METAMYELOCYTE 4 % (0-0); NEUTROPHILS 4 % (42.0-75.2); PLATELET ESTIMATE DECREASED (NORMAL)
[2021-08-09 05:51] LABS: HYPOCHROMIA 3+; POLYCHROMASIA 1+; SCHISTOCYTES 1+
[2021-08-09 08:41] LABS: PATHOLOGY DIFF REVIEW OK
--- NOTE | 2021-08-09 13:14 | NUR ---
First visit from the windmill technician. No needs right now.
--- NOTE | 2021-08-09 14:44 | NUR ---
Electro Plater met with patient, patient's Seferino (ph#[phone]), and patient's son Octavio to complete initial intake. Patient lives in [place] with his Seferino and sees Dr. Pickard for primary care. Patient obtains medications from [facility] and Seferino advised they do sometimes have trouble affording patient's medications despite Blue Cross coverage. Patient is currently receiving chemotherapy with the last treatment on 08/02/21. [facility] provides PICC cares to patient and Seferino advised they also have utilized private duty services through [facility] for assistance with hygiene. Patient has a austin lift, hospital bed, and wheelchair at home. Patient appears to be uncomfortable and requests SW follow up with RN about pain medication and moving him. SW notified RN and will continue to follow for discharge needs. PT/OT ordered.
[2021-08-10] VITALS (686 sets, daily range): BP systolic 87–108; BP diastolic 56–76; PULSE 70–96; TEMP 96.7–99; O2SAT 64–100
[2021-08-10 05:31] LABS: MEAN CELL VOLUME 91 fl (80.0-100.0); MEAN CORPUSCULAR HGB CONC 32 g/dl (33.0-37.0); MEAN PLATELET VOLUME 11.9 fl (7.4-10.4); REDCELL DISTRIBUTION WIDTH-CV 14.5 % (11.5-14.5)
[2021-08-10 05:38] LABS: HEMATOCRIT 22.8 % (42.0-52.0); HEMOGLOBIN 7.3 g/dl (13.5-18.0); MEAN CORPUSCULAR HEMOGLOBIN 29 pg (27.0-31.0)
[2021-08-10 05:39] LABS: PLATELET COUNT 44 K/mm3 (130-400)
[2021-08-10 05:40] LABS: ALBUMIN 2.3 gm/dL (3.5-5.0); BILIRUBIN,TOTAL 0.6 mg/dL (0.2-1.2); CALCIUM 7.9 mg/dL (8.4-10.2); CREATININE, serum 2.47 mg/dL (0.72-1.25); POTASSIUM 3.8 mmol/L (3.5-4.5); TOTAL PROTEIN 4.7 gm/dL (6.2-8.1)
[2021-08-10 06:40] LABS: BAND 42 % (0-10); LYMPHOCYTE 33 % (20.0-51.0); METAMYELOCYTE 1 % (0-0); NEUTROPHILS 5 % (42.0-75.2); PLATELET ESTIMATE DECREASED (NORMAL)
[2021-08-10 06:41] LABS: HYPOCHROMIA 1+
[2021-08-10 06:42] LABS: BURR CELLS 1+; POIKILOCYTOSIS 1+
--- NOTE | 2021-08-10 09:33 | NUR ---
I was called by Primary nurse to come and talk with and sister about palliative care. I did go in to talk with them but at that point his wanted to talk with their children before going further with conversation. She has spoken with Dipti at [facility] earlier about palliative home health services she reports. I did leave her with my phone number and encouraged her too call when she was ready to talk further.
[2021-08-10 14:33] LABS: PHOSPHOROUS 4.4 mg/dL (2.3-4.7)
[2021-08-10 14:35] LABS: SALICYLATE < 5.0 mg/dL (15.0-30.0)
--- NOTE | 2021-08-10 15:22 | NUR ---
Met anuj Stephen and her sister again to talk more about what they are looking for in care at this time. After much discussion of supportive care vs comfort care, they are looking at trying to help Ifeanyi get more treatment days over the weekend and then will likely take him home on hospice services. I spoke with Dipti at [facility] who reports it would be hard to admit this patient over the weekend and they would prefer to admit either Friday or Friday if possible. i spoke with Dr Mccormack about what the is hoping for and he did feel we could continue care over the weekend but there are no gaurantees about his improvement. His primary nurse Kayla was also advised of this request and feels that a central line will likely have to be placed. The twins should be here soon so we can talk more about this plan to be sure that they are all on the same page. Liliya, child protective services social worker, will send referral paperwork to [facility] this afternoon. The family does understand that hospice means that we will focus on comfort and quality of life. There would be no more IV antibiotics, no more hospitalizations, no further treatments.
--- NOTE | 2021-08-10 16:32 | NUR ---
Family meeting with sister on phone, Seferino, Sister in law, and the twins and discussion of central line placement was had. Kayla Ness also participated in discussion with family and this nurse. Family is comfortable with looking at hospice but would like for him to continue to be treated over the weekend before going home with hospice.
--- NOTE | 2021-08-10 16:38 | NUR ---
Supervisor Packing collaborated with Jina Palliative RN who advised patient's family is considering hospice, but would like him to continue to be treated at the hospital at this time. Patient's family is interested in hospice at home through [facility]. RICKEY contacted Dipti and faxed referral.
--- NOTE | 2021-08-10 18:02 | NUR ---
FAMILY SPOKE WITH PALLATIVE CARE RN JUAN M AND HAS DECIDED TO CONTINUE TREATMENT AT THIS TIME AND PLAN FOR HOME WITH HOSPICE ON FRIDAY. THEY HOWEVER ARE REFUSING A CENTRAL LINE AT THIS TIME. PT HAS BEEN OFF LEVO FOR A FEW HOURS. RISKS DISCUSSED WITH FAMILY. NOTIFIED. WILL CONITNUE TO MONITOR.
--- NOTE | 2021-08-10 20:24 | NUR ---
Patient called for updated. Update provided. No further questions at this time.
--- NOTE | 2021-08-10 20:40 | NUR ---
Verified with patient -levophed infusion ok if needed just no central lines.
[2021-08-11] VITALS (678 sets, daily range): BP systolic 74–127; BP diastolic 48–94; PULSE 51–105; TEMP 96.4–98.5; O2SAT 76–100
--- NOTE | 2021-08-11 01:22 | NUR ---
Patient temp at 0000 96.7 rectally. Applied warm blankets to patient. Upon recheck 96.4 axillary. Spoke with Sarah NUNEZ. Place rohan hugger and rectal temp probe. Also updated Sarah NUNEZ patient was restarted on levophed for pressures 80s/40s with MAP in 50s.
[2021-08-11 05:16] LABS: MEAN CELL VOLUME 87 fl (80.0-100.0); MEAN CORPUSCULAR HGB CONC 33 g/dl (33.0-37.0); MEAN PLATELET VOLUME 12.5 fl (7.4-10.4); PLATELET COUNT 58 K/mm3 (130-400); RED BLOOD COUNT 2.48 M/mm3 (4.20-5.60); REDCELL DISTRIBUTION WIDTH-CV 14.5 % (11.5-14.5)
[2021-08-11 05:17] LABS: HEMATOCRIT 21.6 % (42.0-52.0); HEMOGLOBIN 7.2 g/dl (13.5-18.0); MEAN CORPUSCULAR HEMOGLOBIN 29 pg (27.0-31.0)
[2021-08-11 05:34] LABS: ALBUMIN 2.2 gm/dL (3.5-5.0); BILIRUBIN,TOTAL 0.5 mg/dL (0.2-1.2); CALCIUM 8.4 mg/dL (8.4-10.2); CREATININE, serum 2.33 mg/dL (0.72-1.25); POTASSIUM 3.2 mmol/L (3.5-4.5); TOTAL PROTEIN 4.6 gm/dL (6.2-8.1)
--- NOTE | 2021-08-11 05:56 | NUR ---
Patient urine output ranged from 25ml to 42ml per hour during night. Sarah NUNEZ aware. Patient placed on rohan hugger with rectal temp probe for low core temps. Patient 98.4 this AM. Patient was repositioned Q2H during night. IV site to left AC closely monitored with levophed infusion. Resting in bed this AM. Call light in reach.
[2021-08-11 06:21] LABS: BAND 13 % (0-10); BASOPHIL 1 % (0-2); LYMPHOCYTE 11 % (20.0-51.0); METAMYELOCYTE 2 % (0-0); NEUTROPHILS 64 % (42.0-75.2); PLATELET ESTIMATE DECREASED (NORMAL)
[2021-08-11 06:22] LABS: HYPOCHROMIA 1+
[2021-08-11 06:24] LABS: BURR CELLS 1+
[2021-08-11 06:25] LABS: ANISOCYTOSIS 1+; SCHISTOCYTES 1+
--- NOTE | 2021-08-11 07:00 | NUR ---
PT RESTING IN BED. PT ON LEVOPHED AND LR. PT HAS BEARHUGGER IN PLACE. PT'S VSS. WILL CONTINUE TO MOTNIOR.
--- NOTE | 2021-08-11 07:09 | NUR ---
Report given to Kayla CARTWRIGHT
--- NOTE | 2021-08-11 15:22 | NUR ---
RICKEY attempted to all patient's spouse to obtain information in regards to considering home hospice through [facility], unable to reach. RICKEY contacted by Marcella from [facility] [phone] fax: [phone] stating that she would like to obtain DC documenation when the information is provided if patient is going through another agency. Marcella stated spouse texted her this morning and provided that patient would be going home on Friday with services but unsure of who's specific services. RICKEY not able to confirm information. RICKEY will continue to follow.
[2021-08-11 16:22] LABS: MAGNESIUM 1.2 mg/dL (1.6-2.6); PHOSPHOROUS 3.7 mg/dL (2.3-4.7)
--- NOTE | 2021-08-11 16:33 | NUR ---
NOTIFIED OF MAG LEVEL 1.2. ORDERS TO REPLACE AND RECHECK IN AM.
--- NOTE | 2021-08-11 21:00 | NUR ---
Assessment complete and charted. Patient incontinent of bowel. Cares provided and patient repositioned. Patient orientated x2. Denies pain. Denies needs at this time. Call light in reach.
[2021-08-12] VITALS (637 sets, daily range): BP systolic 83–121; BP diastolic 68–85; PULSE 84–104; TEMP 97–98.2; O2SAT 80–100
--- NOTE | 2021-08-12 06:13 | NUR ---
Patient remained on levophed throughout night. Repositioned Q2H. Resting in bed this AM. Call light in reach.
--- NOTE | 2021-08-12 07:00 | NUR ---
PT RESTING IN BED. PT ON A LITTLE OF LEVO AND LR. VSS. WILL CONTINUE TO MONTIOR.
[2021-08-12 07:19] LABS: CALCIUM 8.8 mg/dL (8.4-10.2); CREATININE, serum 2.23 mg/dL (0.72-1.25); MAGNESIUM 1.7 mg/dL (1.6-2.6); POTASSIUM 3.5 mmol/L (3.5-4.5)
--- NOTE | 2021-08-12 07:21 | NUR ---
Report given to Kayla CARTWRIGHT
[2021-08-12 08:53] LABS: MEAN CELL VOLUME 91 fl (80.0-100.0); MEAN CORPUSCULAR HGB CONC 32 g/dl (33.0-37.0); MEAN PLATELET VOLUME 12.2 fl (7.4-10.4); PLATELET COUNT 62 K/mm3 (130-400); RED BLOOD COUNT 2.67 M/mm3 (4.20-5.60); REDCELL DISTRIBUTION WIDTH-CV 14.8 % (11.5-14.5)
[2021-08-12 08:54] LABS: HEMATOCRIT 24.4 % (42.0-52.0); HEMOGLOBIN 7.8 g/dl (13.5-18.0); MEAN CORPUSCULAR HEMOGLOBIN 29 pg (27.0-31.0)
[2021-08-12 09:48] LABS: BAND 4 % (0-10); LYMPHOCYTE 4 % (20.0-51.0); NEUTROPHILS 88 % (42.0-75.2)
[2021-08-12 09:49] LABS: HYPOCHROMIA 1+; PLATELET ESTIMATE DECREASED (NORMAL); SCHISTOCYTES 1+
--- NOTE | 2021-08-12 11:38 | NUR ---
RICKEY CONTACTED IN REGARDING TO FAMILIES WISH TO GO HOME WITH HOSPICE FRIDAY OR FRIDAY. [facility] WILL CONTACT TODAY TO ARRANGE.
--- NOTE | 2021-08-12 19:30 | NUR ---
Received report from GABBIE Garza. All medications verified and all questions answered. VSS. Patient resting in bed in room. No concerns or complaints noted at this time. Will resume care of patient at this time.
[2021-08-13] VITALS (363 sets, daily range): BP systolic 68–99; BP diastolic 23–74; PULSE 104–168; TEMP 97.4–98.1; O2SAT 80–100
--- NOTE | 2021-08-13 08:15 | NUR ---
Patient awake and naping on and off in bed. Will open eyes and respond to nurse, however with drift off to sleep midsentence and needs occasional reminders to finish responses. Denies any pain at this time. Call light left within reach; will continue to monitor.
--- NOTE | 2021-08-13 10:11 | NUR ---
I have spoken with Dipti at [facility] and with Dr Sky. Hospice would be able to do a morning admission tomorrow in the home. I also spoke with , Seferino, and advised her that this is what we are looking at and she seemed to be ok with this as well. They have the equipment that they will need by Seferino's report but are looking at a heat source for the room he would be staying in--or they may use her father's home.
--- NOTE | 2021-08-13 12:35 | NUR ---
Initial visit; Patient needed assistance to sit up in bed. Roll Tester found a nurse for him. Earlier patient stated he was Congregational though didn't want spiritual care at that time.
--- NOTE | 2021-08-13 15:00 | NUR ---
Pt arrived to room 352 at this time. He is alert but thinks he is in [place], intermittent confusion. Pt denies pain, but does groan with any movement. Pt currently on RA, lungs CTA. HRR. BLE +3, BUE +2, and swollen scrotum. Pt does have moist skin as fluid is seeping from legs. Robison DD, peach colored, cloudy urine present, incontinent of loose stool. Pericare provided. Coccyx redenned and peeling. Pt has patent IV to RAC. Fall precautions in place.
--- NOTE | 2021-08-13 15:44 | NUR ---
Dental Secretary attended clinical rounds with the team. Plan will be for patient to discharge home with [facility] services. Patient's , Seferino is agreeable to this plan. RICKEY collaborated with Dipti at [facility] who advised they will need to do a morning admission and would like patient to be picked up by EMS at 0930 to arrive at home at 1000 if possible. RICKEY collaborated with patient's , palliative RN Jina, Hospitalist, and [facility] to set up discharge time for 0930. All are in agreement. Patient transferred up to the medical floor. RICKEY updated RICKEY Fine on Medical of the above information. RICKEY updated Marcella at [facility] who advised they will discharge patient from their skilled services as patient will discharge home with hospice services. Marcella would like a copy of discharge orders. Discharge Plan: Home with [facility] services
--- NOTE | 2021-08-13 20:00 | NUR ---
Patient is resting in bed, awakes when talking to him. Denies pain. Tele in place. VS unstable, tachychardia, low blood pressure, low 02.
--- NOTE | 2021-08-13 20:30 | NUR ---
Patient had LBP, new vitals taken, repositioned to supine 94/50 pulse 119, o2 83. Oxymask started at 1 L o2. O2 levels rised to 95.
--- NOTE | 2021-08-13 21:15 | NUR ---
BP taken again 144/1152 pulse 112, O2 sat 98 at 1L 02.
[2021-08-14 01:40] VITALS: BP 93/59; PULSE 122; TEMP 97.5
--- NOTE | 2021-08-14 04:45 | NUR ---
Pt complains of constant aching pain in his lower back. Pt repositioned, PRN med provided.
[2021-08-14 05:32] VITALS: BP 77/49; TEMP 96.7
--- NOTE | 2021-08-14 06:05 | NUR ---
VS reported by [employer] AUDIT CLERK, SBP IN 70s. Pt positioned supine BP 90/62, HR 132. O2 levels higher 80s lower 90s. Patient with oxy mask at 1l O2. Pt removes mask constantly. Pt alert and partially oriented. Receiving Zosyn infusion. Shift report will be given to day nurse.
[2021-08-14 08:01] VITALS: BP 78/50; PULSE 137; TEMP 98.1
--- NOTE | 2021-08-14 09:00 | NUR ---
Pt provided with comfort quilt with explanation. He seemed very pleased to be going home and to be able to be with his family. Support provided.
--- NOTE | 2021-08-14 09:05 | NUR ---
Patient is discharging home with hospice, [facility] is transporting patient home, is notified, IV removed prior to discahrge, Robison cath in place upon discharge for comfort
--- NOTE | 2021-08-14 09:08 | NUR ---
The patient is to discharge back home with his today, 08/14, on hospice from [facility]. Transportation was scheduled at 0930, via [facility]. SW notified the patient's , his RN, and Dipti at [facility] of the time. They were all in agreement to the time. The patient's , Seferino, gave approval to sign the EMS Transfer Consent form on her behalf. No additional needs at this time.
== END 2021-08-14 11:49 | disposition hospice, home (50) | DRG 871 ==
LOC: COL.ER 17:37 → ICU 20:37 → MEDICAL 08-13 15:05
PROVIDERS: Emergency Medicine; Nurse Practitioner Family; ADMIT Internal Medicine
DX: A41.9 Sepsis, unspecified organism (principal); R65.21 Severe sepsis with septic shock; J96.01 Acute respiratory failure with hypoxia; N17.9 Acute kidney failure, unspecified; D61.818 Other pancytopenia; E87.2 Acidosis; G61.81 Chronic inflammatory demyelinating polyneuritis; G93.40 Encephalopathy, unspecified; N39.0 Urinary tract infection, site not specified; C62.91 Malignant neoplasm of right testis, unspecified whether descended or undescended; G83.9 Paralytic syndrome, unspecified; I48.91 Unspecified atrial fibrillation; E87.5 Hyperkalemia; K21.9 Gastro-esophageal reflux disease without esophagitis; F41.9 Anxiety disorder, unspecified; R59.9 Enlarged lymph nodes, unspecified; Z66 Do not resuscitate; G47.33 Obstructive sleep apnea (adult) (pediatric); E66.01 Morbid (severe) obesity due to excess calories; I10 Essential (primary) hypertension; E87.6 Hypokalemia; Z20.822 Contact with and (suspected) exposure to COVID-19; Z87.891 Personal history of nicotine dependence; Z68.38 Body mass index [BMI] 38.0-38.9, adult
CPT/HCPCS: 99223-AI; 99231-AI; 99232-AI; 99233-AI; 99239; A4314; C1751; C1892; J1447; J1720; J2543; J3010; J3370; J3475; J3480; J7030; J7040; J7050; J7060; J7120; P9047